=== PATIENT | female | born 1995 | race Caucasian/White ===

== ENCOUNTER 2019-11-15 16:04 | Outpatient (CLI) | payer BC ==
[~2019-11-15] VITALS: Ht 154.9 cm; Wt 58.6 kg
[~2019-11-15 16:04] MED LIST: IBUP-1222 PO; OXYC-302 PO; PREN1TAB60 PO
[2019-11-15 17:01] LABS: MICROSCOPIC NOT IND
[2019-11-15] MEDS ORDERED: TERBUTALINE 1 MG/ML, 1ML SQ ONE (17:06)
[2019-11-15] MEDS ORDERED: TERBUTALINE 1 MG/ML, 1ML ONE (17:08)
[2019-11-15 17:16] VITALS: BP 116/67
[2019-11-15 19:47] LABS: AMPHETAMINE SCREEN, URINE Negative (Negative); BARBITURATE SCREEN, URINE Negative (Negative); BENZODIAZEPINE SCREEN, URINE Negative (Negative); CANNABINOID SCREEN, URINE Negative (Negative); COCAINE SCREEN, URINE Negative (Negative); METHADONE SCREEN, URINE Negative (Negative); OPIATE SCREEN, URINE Negative (Negative)
== END 2019-11-15 20:10 | disposition home or self-care (01) ==
LOC: OUT 16:04 → LDOP 20:10
PROVIDERS: ATTEND Obstetrics & Gynecology
DX: O26.893 Other specified pregnancy related conditions, third trimester (principal); R10.9 Unspecified abdominal pain; Z3A.30 30 weeks gestation of pregnancy
CPT/HCPCS: 59025; 80307; 81003; 87086; 96372; J3105

== ENCOUNTER 2020-01-01 05:41 | Inpatient (IN) | payer BC ==
[~2020-01-01] VITALS: Ht 154.9 cm; Wt 58.1 kg
[2020-01-01] MEDS ORDERED: ALUMINUM/MAG/SIMETHICONE 30 ML UDC PO PRN (06:00)
[2020-01-01] MEDS ORDERED: TERBUTALINE 1 MG/ML, 1ML SQ PRN (06:00)
[2020-01-01] MEDS ORDERED: FENTANYL PF 100 MCG/2ML IV PRN (06:00)
[2020-01-01] MEDS: D5%-LACTATED RINGERS 1,000 ML IV SCH ×2 (06:00→14:00)
[2020-01-01] MEDS ORDERED: ONDANSETRON 2MG/ML, 2ML IVPush PRN (06:00)
[2020-01-01] MEDS ORDERED: OXYTOCIN 30U/ 0.9% NaCL 500ML 500 ML IV ONE (06:00)
[2020-01-01] MEDS ORDERED: FENTANYL PF 100 MCG/2ML IVPush PRN (06:00)
[2020-01-01] MEDS ORDERED: TERBUTALINE 1 MG/ML, 1ML IVPush PRN (06:00)
[2020-01-01] MEDS ORDERED: CALCIUM CARBONATE 500 MG TAB.CHEW PO PRN (06:00)
[2020-01-01] MEDS ORDERED: OXYTOCIN 30U/ 0.9% NaCL 500ML 500 ML IV PRN (06:00)
[2020-01-01 06:08] VITALS: BP 108/59
[2020-01-01] MEDS: LACTATED RINGERS 1,000 ML IV SCH ×2 (06:22→10:10)
[2020-01-01] MEDS ORDERED: LIDOCAINE 1%, 20ML ONE (06:25)
[2020-01-01] MEDS ORDERED: NEWBORN KIT ONE (06:25)
[2020-01-01] MEDS ORDERED: OXYTOCIN 30U/ 0.9% NaCL 500ML 500 ML ONE ×2 (06:25→14:01)
[2020-01-01] MEDS ORDERED: MISOPROSTOL 200 MCG TABLET ONE (06:25)
[2020-01-01 06:29] LABS: BASOPHILS % (AUTO) 1 % (0-1); EOSINOPHILS % (AUTO) 1 % (1-7); LYMPHOCYTES % (AUTO) 18 % (22-44); MEAN CORPUSCULAR HEMOGLOBIN 32.5 pg (27.0-34.8); MEAN CORPUSCULAR HGB CONC 33.6 g/dL (32.4-35.8); MONOCYTES % (AUTO) 6 % (2-9); NEUTROPHILS % (AUTO) 74 % (42-75); PLATELET COUNT 177 x10^3/uL (130-400); RED CELL DISTRIBUTION WIDTH 12.4 % (9.6-15.2)
[2020-01-01 06:37] LABS: MD NO
[2020-01-01] MEDS ORDERED: FENTANYL/BUPIV./NS/PF 250 ML EPIDCONT ONE (10:27)
[2020-01-01] MEDS ORDERED: NALOXONE 0.4 MG/ML, 1ML IVPush PRN (11:30)
[2020-01-01] MEDS ORDERED: LACTATED RINGERS 1,000 ML IV SCH (11:30)
[2020-01-01] MEDS ORDERED: LACTATED RINGERS 1,000 ML IVBOLUS PRN (11:30)
[2020-01-01] MEDS ORDERED: FENTANYL/BUPIV./NS/PF 250 ML EPIDCONT SCH (11:30)
[2020-01-01] MEDS ORDERED: EPHEDRINE 50 MG/ML, 1ML IVPush PRN (11:30)
[2020-01-01] MEDS: OXYTOCIN 30U/ 0.9% NaCL 500ML 500 ML IV SCH (14:00)
[2020-01-01] MEDS ORDERED: HYDROcodone/APAP 5/325 TABLET PO PRN (14:00)
[2020-01-01] MEDS ORDERED: BISACODYL 10 MG SUPP PR PRN (14:00)
[2020-01-01] MEDS ORDERED: RHOGAM FROM BLOOD BANK 1 NOTE EA IM/IV ONE (14:00)
[2020-01-01] MEDS ORDERED: ACETAMINOPHEN 325 MG TABLET PO PRN (14:00)
[2020-01-01] MEDS ORDERED: DOCUSATE 100 MG CAPSULE PO PRN (14:00)
[2020-01-01] MEDS ORDERED: IBUPROFEN 200 MG TABLET PO PRN (14:00)
[2020-01-01] MEDS ORDERED: ONDANSETRON 2MG/ML, 2ML IV PRN (14:00)
[2020-01-01] MEDS ORDERED: OXYcodone/APAP 5/325MG TABLET PO PRN (14:00)
[2020-01-01] MEDS ORDERED: MISOPROSTOL 200 MCG TABLET PR PRN (14:00)
[2020-01-01 16:10] VITALS: BP 96/60
[2020-01-01] MEDS: IBUPROFEN 800 MG TABLET PO PRN (18:40)
[2020-01-01 20:30] VITALS: BP 100/64
[2020-01-01 23:12] LABS: BASOPHILS % (AUTO) 1 % (0-1); EOSINOPHILS % (AUTO) 1 % (1-7); LYMPHOCYTES % (AUTO) 14 % (22-44); MEAN CORPUSCULAR HEMOGLOBIN 32.7 pg (27.0-34.8); MEAN CORPUSCULAR HGB CONC 34.1 g/dL (32.4-35.8); MEAN PLATELET VOLUME 10.5 fL (7.4-10.4); MONOCYTES % (AUTO) 7 % (2-9); NEUTROPHILS % (AUTO) 78 % (42-75); PLATELET COUNT 151 x10^3/uL (130-400); RED BLOOD COUNT 3.14 x10^6/uL (3.82-5.3); RED CELL DISTRIBUTION WIDTH 12.5 % (9.6-15.2)
[2020-01-01 23:14] LABS: MD NO
[2020-01-02] VITALS: BP 89/48
[2020-01-02] MEDS: OXYTOCIN 30U/ 0.9% NaCL 500ML 500 ML IV SCH
[2020-01-02 04:00] VITALS: BP 93/58
[2020-01-02] MEDS ORDERED: PRENATAL VIT/IRON/FA 1 EACH TABLET PO SCH (09:00)
[2020-01-02] MEDS: IBUPROFEN 800 MG TABLET PO PRN (09:42)
[2020-01-02 10:17] VITALS: BP 88/52
[2020-01-02 13:30] VITALS: BP 99/61
[2020-01-02] MEDS ORDERED: DOCU-131 PO (14:31)
[2020-01-02] MEDS ORDERED: PREN1TAB60 PO (14:31)
[2020-01-02] MEDS ORDERED: IBUP-1223 PO (14:31)
== END 2020-01-02 16:15 | disposition home or self-care (01) | DRG 807 ==
LOC: LDIP 05:41 → 2NW 15:59
PROVIDERS: ADMIT Obstetrics & Gynecology; ATTEND Obstetrics & Gynecology
PROC: 10E0XZZ Delivery of Products of Conception, External Approach (ICD-10-PCS; principal; 2020-01-01)
PROC: 3E033VJ Introduction of Other Hormone into Peripheral Vein, Percutaneous Approach (ICD-10-PCS; 2020-01-01)
PROC: 3E0R3BZ Introduction of Anesthetic Agent into Spinal Canal, Percutaneous Approach (ICD-10-PCS; 2020-01-01)
PROC: 00HU33Z Insertion of Infusion Device into Spinal Canal, Percutaneous Approach (ICD-10-PCS; 2020-01-01)
DX: O36.5930 Maternal care for other known or suspected poor fetal growth, third trimester, not applicable or unspecified (principal); Z37.0 Single live birth; O69.81X0 Labor and delivery complicated by cord around neck, without compression, not applicable or unspecified; O99.52 Diseases of the respiratory system complicating childbirth; Z3A.37 37 weeks gestation of pregnancy; O35.8XX0 Maternal care for other (suspected) fetal abnormality and damage, not applicable or unspecified; J45.909 Unspecified asthma, uncomplicated; Z82.49 Family history of ischemic heart disease and other diseases of the circulatory system; Z72.0 Tobacco use; Z91.018 Allergy to other foods; Z91.09 Other allergy status, other than to drugs and biological substances; Z90.49 Acquired absence of other specified parts of digestive tract; Z90.89 Acquired absence of other organs; O71.82 Other specified trauma to perineum and vulva; Z20.828 Contact with and (suspected) exposure to other viral communicable diseases
CPT/HCPCS: 36415; 85025; 86592; 86850; 86900; 87635; G0378; J2590; J7120